=== PATIENT | male | born 1950 | race Caucasian/White ===

== ENCOUNTER 2016-05-20 08:29 | Emergency (ER) | payer BC ==
[~2016-05-20] VITALS: Ht 180.3 cm; Wt 99.3 kg
--- NOTE | ~2016-05-20 | EKG ---
[place] [address] [facility] [place] [address] ELECTROCARDIOGRAM REPORT Name: JUAN HERNANDEZ Room #: DEP FABIANO De Anda#: [id number] Admission: 05/20/16 Attend Phys: Discharge: 05/20/16 Date of : 52 Report #: [id number] THIS REPORT FOR: //name// [facility] ED Test Date: 2016-05-20 Test Time: 08:54:03 Pat Name: JUAN HERNANDEZ Department: Room: Gender: Rn Field: Neida GANN : 1950 Requested By: Cici Leary Order Number: [id number] MD: Daron Huff Measurements Intervals [place] Rate: 81 P: 16 MD: 156 QRS: -18 QRSD: 109 T: 42 QT: 391 QTc: 454 Interpretive Statements Sinus rhythm Borderline left axis deviation No previous ECG available for comparison Electronically Signed On 05-20-2016 12:47:59 INFORMATION TECHNOLOGY AUDIT MANAGER by Daron Huff [email or web address] <ELECTRONICALLY SIGNED> By: Daron Huff MD 05/20/16 1247 [id number] Daron Huff MD /[place]
[~2016-05-20 08:29] MED LIST: ADULT LOW DOSE81 MG PO; APAP/CODEINE ELI5 M1 OR; ASPIRIN EC81 M1 PO; CELEXA 20 MG TA20 M1 PO; CHANTIX1 MG PO; CLEAR LAX; INHALER; MUCINEX TA600 MG/TA2 PO; NOHOMEMEDICATIONS; PREDNISONE50 MG PO; PRILOSEC 20 MG20 MG PO; PRILOSEC PO; PROAIR HFA8.5 GM IH; PROVENTIL HFA6.7 G1 INH; TUSSIONEX PENN473 ML PO; VENTOLIN HFA 1818 GM INH; ZPAK PO
[2016-05-20 08:50] LABS: ABSOLUTE NEUTROPHILS 5.1 thou/uL (1.4-8.2); BASOPHILS 0.9 % (0.0-2.0); EOSINOPHILS 1.1 % (0.0-3.0); HEMATOCRIT 43.5 % (42.0-52.0); HEMOGLOBIN 14.6 gm/dL (14.0-18.0); LYMPHOCYTES 23.1 % (24.0-44.0); MCHC 33.7 % (28.0-37.0); MCV 89.2 fL (80.0-100.0); MONOCYTES 8.9 % (1.0-8.0); PLATELET COUNT 298 thou/uL (150-400); RBC 4.88 mil/uL (4.50-6.00); RDW 14.3 % (10.5-14.5); WBC 7.7 thou/uL (4.0-11.0)
[2016-05-20 08:52] LABS: MANUAL DIFF NO
[2016-05-20 08:58] LABS: CALCIUM 9.2 mg/dL (8.5-10.1); CREATININE 1.2 mg/dL (0.6-1.3); POTASSIUM 3.8 mmol/L (3.5-5.1)
[2016-05-20] MEDS ORDERED: ADVAIR 250-501 EACH INH (09:06)
[2016-05-20] MEDS ORDERED: COZAAR 50 MG TA50 M2 PO (09:06)
[2016-05-20] MEDS ORDERED: TRAZODONE HCL50 MG PO (09:08)
[2016-05-20] MEDS ORDERED: PANTOPRAZOLE SO40 M1 PO (09:09)
[2016-05-20] MEDS ORDERED: DUONEB 2.5-0.5 M3 ML INH (09:09)
[2016-05-20] MEDS ORDERED: ASPIR 8181 MG PO (09:09)
[2016-05-20 09:31] LABS: ABG SAMPLE TYPE ARTERIAL; BE(vivo) -1.1 mmol/L (-2 to +3); HCO3 23.1 mmol/L (22.0-26.0); LACTATE 1.55 mmol/L (0.5-2.0); O2(CT) 19.4 mL/dL (15.0-23.0); O2Hb 93.2 % (92.0-98.0); PCO2 37.1 mmHg (35.0-45.0); PO2 70.4 mmHg (80.0-100.0); pH 7.412 (7.360-7.450); sO2 94.4 % (92.0-98.0); tCO2 24.2 mmol/L (24.0-30.0)
[2016-05-20 09:32] LABS: ABG COMMENT PT. DID NOT WANT RAD; STICK SITE R.BRACHIAL
[2016-05-20] MEDS ORDERED: PROPAFENONE 15150 MG PO (09:54)
[2016-05-20] MEDS ORDERED: DOXYCYCLINE 10100 MG PO (09:55)
[2016-05-20] MEDS ORDERED: TUSSIONEX PENN473 ML PO (09:55)
[2016-05-20] MEDS ORDERED: PREDNISONE 20 M20 MG PO (09:55)
[2016-05-20 09:58] VITALS: BP 133/88
== END 2016-05-20 10:05 | disposition home or self-care (01) ==
LOC: ER 08:29
PROVIDERS: Emergency Medicine
DX: J18.9 Pneumonia, unspecified organism (principal); J98.01 Acute bronchospasm; J44.9 Chronic obstructive pulmonary disease, unspecified; Z90.49 Acquired absence of other specified parts of digestive tract; Z87.891 Personal history of nicotine dependence